=== PATIENT | male | born 1990 | race Two or more races ===

== ENCOUNTER 2024-04-13 10:49 | Inpatient (IN) | payer OTHER ==
[~2024-04-13] VITALS: Ht 175.3 cm; Wt 90.5 kg
[2024-04-13] MEDS ORDERED: TRAZ-257 PO (11:18)
[2024-04-13 12:24] LABS: BASOPHILS % (AUTO) 0.3 % (0.0-2.0); EOSINOPHILS % (AUTO) 0.2 % (1.0-6.0); HEMATOCRIT 42.4 % (41-53); HEMOGLOBIN 14.3 g/dL (13.5-17.5); LYMPHOCYTES # (AUTO) 0.9 K/uL (1.0-4.8); LYMPHOCYTES % (AUTO) 10.3 % (22.0-44.0); MEAN CORPUSCULAR HEMOGLOBIN 31.2 pg (26.0-34.0); MEAN CORPUSCULAR HGB CONC 33.8 G/dL (31.0-37.0); MEAN CORPUSCULAR VOLUME 92 fL (80-100); MONOCYTES # (AUTO) 0.6 K/uL (0.1-1.0); MONOCYTES % (AUTO) 6.8 % (2.0-9.0); NEUTROPHILS # (AUTO) 6.8 K/uL (1.8-7.7); NEUTROPHILS % (AUTO) 82.4 % (40.0-70.0); PLATELET COUNT (AUTO) 335 K/uL (150-450); RED BLOOD CELL COUNT(AUTO) 4.59 MIL/uL (4.50-5.90); WHITE BLOOD COUNT (AUTO) 8.3 K/uL (4.5-11.0)
[2024-04-13] MEDS ORDERED: IOHEXOL 350 MG/ML 100 ML VIAL ONE (12:24)
[2024-04-13] MEDS ORDERED: SODIUM CHLORIDE 0.9% 100 ML ONE (12:24)
[2024-04-13 12:39] LABS: ANION GAP 12 mmol/L (8-16); CALCIUM, TOTAL 9.1 mg/dL (8.8-10.5); CARBON DIOXIDE 27 mmol/L (22-29); CHLORIDE 100 mmol/L (98-107); CREATININE 0.94 mg/dL (0.60-1.30); GLOMERULAR FILTR. RATE CALC > 60 mL/min (>60); GLUCOSE,RANDOM 101 mg/dL (70-110); POTASSIUM 3.7 mmol/L (3.5-5.1); SODIUM SERUM 139 mmol/L (136-145); UREA NITROGEN, BLOOD 9 mg/dL (7-18)
[2024-04-13 12:48] LABS: LACTIC ACID 0.6 mmol/L (0.4-2.0)
[2024-04-13] MEDS: ACETAMINOPHEN 1000 MG/ISO-OSM 100 ML IV ONE (13:58)
[2024-04-13] MEDS: KETOROLAC TROMETHAMINE 30 MG/ML VIAL IVP ONE (13:58)
[2024-04-13] MEDS: SODIUM CHLORIDE 0.9% 1,000 ML IV ONE ×2 (13:59→16:07)
[2024-04-13] MEDS: VANCOMYCIN 1.25 GM/WATER(PEG) 250 ML IV ONE (14:08)
[2024-04-13] MEDS ORDERED: ZOLPIDEM TARTRATE 5 MG TABLET PO PRN (16:00)
[2024-04-13] MEDS ORDERED: ONDANSETRON HCL 4 MG/2 ML VIAL IVP PRN (16:00)
[2024-04-13] MEDS ORDERED: BISACODYL 10 MG RECTAL RECTAL SUPPOSITORY PR PRN (16:00)
[2024-04-13] MEDS: AMPICILLIN SODIUM/SULBACTAM NA 3 GM in SODIUM CHLORIDE 0.9% 100 ML IV ONE (16:07)
[2024-04-13] MEDS: HEPARIN SODIUM,PORCINE 5,000 UNITS/ML VIAL SQ SCH (16:19)
[2024-04-13] MEDS: DOCUSATE SODIUM 100 MG CAPSULE PO SCH (20:17)
[2024-04-13] MEDS: HYDROCODONE/ACETAMINOPHEN 5-325 MG TABLET PO PRN (20:51)
[2024-04-13 21:27] VITALS: BP 129/65; PULSE 76; RESP 19; TEMP 98.7; O2SAT 100
[2024-04-13] MEDS: PIPERACILLIN/TAZO 3.375 GM/D5W 50 ML IV SCH (22:24)
[2024-04-14] MEDS: VANCOMYCIN 1.25 GM/WATER(PEG) 250 ML IV SCH
[2024-04-14 03:12] VITALS: BP 124/63; PULSE 65; RESP 18; TEMP 98.1; O2SAT 100
[2024-04-14 07:49] LABS: BASOPHILS % (AUTO) 0.2 % (0.0-2.0); EOSINOPHILS % (AUTO) 0.5 % (1.0-6.0); HEMATOCRIT 36.2 % (41-53); HEMOGLOBIN 12.4 g/dL (13.5-17.5); LYMPHOCYTES # (AUTO) 1.1 K/uL (1.0-4.8); MEAN CORPUSCULAR HGB CONC 34.4 G/dL (31.0-37.0); MEAN CORPUSCULAR VOLUME 93 fL (80-100); MONOCYTES # (AUTO) 0.5 K/uL (0.1-1.0); MONOCYTES % (AUTO) 7.5 % (2.0-9.0); NEUTROPHILS # (AUTO) 5.1 K/uL (1.8-7.7); NEUTROPHILS % (AUTO) 75.8 % (40.0-70.0); PLATELET COUNT (AUTO) 302 K/uL (150-450); RED BLOOD CELL COUNT(AUTO) 3.89 MIL/uL (4.50-5.90); RED CELL DISTRIBUTION WIDTH 13.3 % (11.5-14.5); WHITE BLOOD COUNT (AUTO) 6.7 K/uL (4.5-11.0)
[2024-04-14 07:56] VITALS: BP 120/57; PULSE 71; RESP 18; TEMP 98.9; O2SAT 99
[2024-04-14] MEDS: PANTOPRAZOLE SODIUM 40 MG DR TABLET PO SCH (08:00)
[2024-04-14 08:06] LABS: ANION GAP 8 mmol/L (8-16); CALCIUM, TOTAL 8.3 mg/dL (8.8-10.5); CARBON DIOXIDE 27 mmol/L (22-29); CHLORIDE 108 mmol/L (98-107); CREATININE 0.82 mg/dL (0.60-1.30); GLOMERULAR FILTR. RATE CALC > 60 mL/min (>60); GLUCOSE,RANDOM 88 mg/dL (70-110); POTASSIUM 3.6 mmol/L (3.5-5.1); SODIUM SERUM 143 mmol/L (136-145); UREA NITROGEN, BLOOD 8 mg/dL (7-18)
[2024-04-14 16:21] VITALS: BP 122/65; PULSE 72; RESP 20; TEMP 98.6; O2SAT 98
[2024-04-14] MEDS: MORPHINE SULFATE 2 MG/ML SYRINGE IVP PRN (18:29)
[2024-04-14 19:35] VITALS: BP 129/65; PULSE 73; RESP 18; TEMP 98.4; O2SAT 98
[2024-04-14] MEDS: TraZODone HCL 100 MG TABLET PO SCH (20:06)
[2024-04-15 04:45] VITALS: BP 129/86; PULSE 66; RESP 18; TEMP 98.2; O2SAT 96
[2024-04-15 08:00] LABS: BASOPHILS % (AUTO) 0.1 % (0.0-2.0); EOSINOPHILS % (AUTO) 0.7 % (1.0-6.0); HEMATOCRIT 39.3 % (41-53); HEMOGLOBIN 13.5 g/dL (13.5-17.5); LYMPHOCYTES % (AUTO) 13.9 % (22.0-44.0); MEAN CORPUSCULAR HEMOGLOBIN 31.8 pg (26.0-34.0); MEAN CORPUSCULAR HGB CONC 34.4 G/dL (31.0-37.0); MEAN CORPUSCULAR VOLUME 93 fL (80-100); MONOCYTES # (AUTO) 0.4 K/uL (0.1-1.0); MONOCYTES % (AUTO) 5.7 % (2.0-9.0); NEUTROPHILS # (AUTO) 5.8 K/uL (1.8-7.7); NEUTROPHILS % (AUTO) 79.6 % (40.0-70.0); PLATELET COUNT (AUTO) 329 K/uL (150-450); RED BLOOD CELL COUNT(AUTO) 4.25 MIL/uL (4.50-5.90); RED CELL DISTRIBUTION WIDTH 13.1 % (11.5-14.5); WHITE BLOOD COUNT (AUTO) 7.2 K/uL (4.5-11.0)
[2024-04-15 08:10] LABS: ANION GAP 17 mmol/L (8-16); CALCIUM, TOTAL 9.5 mg/dL (8.8-10.5); CARBON DIOXIDE 26 mmol/L (22-29); CHLORIDE 101 mmol/L (98-107); CREATININE 0.91 mg/dL (0.60-1.30); GLOMERULAR FILTR. RATE CALC > 60 mL/min (>60); GLUCOSE,RANDOM 106 mg/dL (70-110); POTASSIUM 3.8 mmol/L (3.5-5.1); SODIUM SERUM 144 mmol/L (136-145); UREA NITROGEN, BLOOD 7 mg/dL (7-18)
[2024-04-15 08:22] VITALS: BP 123/79; PULSE 72; RESP 18; TEMP 98.4; O2SAT 98
[2024-04-15] MEDS: ACETAMINOPHEN 325 MG TABLET PO PRN (11:25)
[2024-04-15] MEDS: VANCOMYCIN HCL 1.25 GM in DEXTROSE 5%-WATER 250 ML IV SCH (17:02)
[2024-04-15 20:08] VITALS: BP 130/76; PULSE 85; RESP 18; TEMP 98.4; O2SAT 94
[2024-04-16 06:59] LABS: ANION GAP 10 mmol/L (8-16); CALCIUM, TOTAL 9.4 mg/dL (8.8-10.5); CARBON DIOXIDE 27 mmol/L (22-29); CHLORIDE 104 mmol/L (98-107); CREATININE 0.99 mg/dL (0.60-1.30); GLOMERULAR FILTR. RATE CALC > 60 mL/min (>60); GLUCOSE,RANDOM 105 mg/dL (70-110); SODIUM SERUM 141 mmol/L (136-145); UREA NITROGEN, BLOOD 8 mg/dL (7-18)
[2024-04-16 08:00] VITALS: BP 126/68; PULSE 65; RESP 16; TEMP 98; O2SAT 98
[2024-04-16] MEDS: MAGNESIUM HYDROXIDE SUSPENSION 30 ML UDCUP PO PRN (08:06)
[2024-04-16 08:51] LABS: BASOPHILS % (AUTO) 0.3 % (0.0-2.0); EOSINOPHILS % (AUTO) 2.2 % (1.0-6.0); HEMATOCRIT 40.7 % (41-53); HEMOGLOBIN 13.8 g/dL (13.5-17.5); LYMPHOCYTES # (AUTO) 1.3 K/uL (1.0-4.8); LYMPHOCYTES % (AUTO) 22.7 % (22.0-44.0); MEAN CORPUSCULAR HEMOGLOBIN 31.4 pg (26.0-34.0); MEAN CORPUSCULAR HGB CONC 33.9 G/dL (31.0-37.0); MEAN CORPUSCULAR VOLUME 93 fL (80-100); MONOCYTES # (AUTO) 0.4 K/uL (0.1-1.0); MONOCYTES % (AUTO) 6.9 % (2.0-9.0); NEUTROPHILS # (AUTO) 3.8 K/uL (1.8-7.7); NEUTROPHILS % (AUTO) 67.9 % (40.0-70.0); PLATELET COUNT (AUTO) 355 K/uL (150-450); RED BLOOD CELL COUNT(AUTO) 4.39 MIL/uL (4.50-5.90); RED CELL DISTRIBUTION WIDTH 13.1 % (11.5-14.5); WHITE BLOOD COUNT (AUTO) 5.5 K/uL (4.5-11.0)
[2024-04-16] MEDS ORDERED: SODIUM CHLORIDE 0.9% 100 ML ONE (09:17)
[2024-04-16] MEDS ORDERED: IOHEXOL 350 MG/ML 100 ML VIAL ONE (09:17)
[2024-04-16 20:03] VITALS: BP 113/64; PULSE 58; RESP 18; TEMP 98.1; O2SAT 98
[2024-04-17 05:02] VITALS: BP 102/62; PULSE 58; RESP 18; TEMP 98; O2SAT 98
[2024-04-17 07:19] LABS: ANION GAP 6 mmol/L (8-16); CALCIUM, TOTAL 9.2 mg/dL (8.8-10.5); CARBON DIOXIDE 30 mmol/L (22-29); CHLORIDE 106 mmol/L (98-107); CREATININE 1.06 mg/dL (0.60-1.30); GLOMERULAR FILTR. RATE CALC > 60 mL/min (>60); GLUCOSE,RANDOM 95 mg/dL (70-110); POTASSIUM 4.2 mmol/L (3.5-5.1); SODIUM SERUM 142 mmol/L (136-145); UREA NITROGEN, BLOOD 10 mg/dL (7-18)
[2024-04-17 19:51] VITALS: BP 123/73; PULSE 88; RESP 18; TEMP 98.1; O2SAT 97
[2024-04-17] MEDS: AMOX TR/POT CLAV 875 MG/125 MG TABLET PO SCH (20:22)
[2024-04-18] MEDS ORDERED: IOHEXOL 350 MG/ML 100 ML VIAL ONE (03:23)
[2024-04-18 04:55] VITALS: BP 104/64; PULSE 66; RESP 18; TEMP 98.1; O2SAT 98
[2024-04-18 07:19] LABS: BASOPHILS % (AUTO) 0.3 % (0.0-2.0); EOSINOPHILS % (AUTO) 3.5 % (1.0-6.0); HEMATOCRIT 40.5 % (41-53); LYMPHOCYTES # (AUTO) 1.5 K/uL (1.0-4.8); LYMPHOCYTES % (AUTO) 33.1 % (22.0-44.0); MEAN CORPUSCULAR HEMOGLOBIN 32.1 pg (26.0-34.0); MEAN CORPUSCULAR HGB CONC 34.7 G/dL (31.0-37.0); MEAN CORPUSCULAR VOLUME 93 fL (80-100); MONOCYTES # (AUTO) 0.3 K/uL (0.1-1.0); MONOCYTES % (AUTO) 6.8 % (2.0-9.0); NEUTROPHILS # (AUTO) 2.6 K/uL (1.8-7.7); NEUTROPHILS % (AUTO) 56.3 % (40.0-70.0); PLATELET COUNT (AUTO) 380 K/uL (150-450); RED BLOOD CELL COUNT(AUTO) 4.37 MIL/uL (4.50-5.90); RED CELL DISTRIBUTION WIDTH 13.3 % (11.5-14.5); WHITE BLOOD COUNT (AUTO) 4.5 K/uL (4.5-11.0)
[2024-04-18 07:30] VITALS: BP 116/60; PULSE 75; RESP 18; TEMP 98.1; O2SAT 100
[2024-04-18 07:44] LABS: ANION GAP 10 mmol/L (8-16); CALCIUM, TOTAL 9.5 mg/dL (8.8-10.5); CARBON DIOXIDE 28 mmol/L (22-29); CHLORIDE 103 mmol/L (98-107); CREATININE 0.99 mg/dL (0.60-1.30); GLOMERULAR FILTR. RATE CALC > 60 mL/min (>60); GLUCOSE,RANDOM 91 mg/dL (70-110); POTASSIUM 4.4 mmol/L (3.5-5.1); SODIUM SERUM 141 mmol/L (136-145); UREA NITROGEN, BLOOD 14 mg/dL (7-18)
[2024-04-18] MEDS ORDERED: AMOX-457 PO (15:33)
[2024-04-18] MEDS ORDERED: ACET-2247 PO (15:43)
[2024-04-18] MEDS ORDERED: MAGN-169 PO (15:45)
[2024-04-18 19:42] VITALS: BP 122/60; PULSE 77; RESP 18; TEMP 98.2; O2SAT 94
== END 2024-04-18 20:50 | DRG 603 ==
LOC: EMS 11:00 → EDH 15:59 → 6S 21:10
PROVIDERS: ADMIT Internal Medicine; ATTEND Internal Medicine
DX: L02.01 Cutaneous abscess of face (principal); F32.A Depression, unspecified; B18.2 Chronic viral hepatitis C; F41.9 Anxiety disorder, unspecified; Z79.899 Other long term (current) drug therapy
CPT/HCPCS: 70487; 80048; 80202; 83605; 85025; 87040; 99285; J0131; J0295; J1644; J1885; J2270; J2543; J7030; J7050; J7060